=== PATIENT | female | born 1965 | race Caucasian/White ===

== ENCOUNTER → 2018-05-19 | Emergency (ER) | payer OTHER ==
[~2018-05-19] VITALS: Ht 175.3 cm; Wt 108.4 kg
[~2018-05-19] MED LIST: ASPIR 8181 MG; CLONAZEPAM0.5 M1; NEURONTIN300 MG; PAXIL30 MG; WELLBUTRIN XL150 M1
== END | disposition left against medical advice (07) ==
LOC: ER 21:27
DX: M54.2 Cervicalgia (principal); M94.0 Chondrocostal junction syndrome [Tietze]